=== PATIENT | male | born 1955 | race Caucasian/White ===

== ENCOUNTER → 2020-06-21 | Outpatient (CLI) | payer MEDICARE | LOC: HEART 5 07:23 | DX: I25.10 Atherosclerotic heart disease of native coronary artery without angina pectoris (principal); R94.31 Abnormal electrocardiogram [ECG] [EKG]; R07.9 Chest pain, unspecified; M51.16 Intervertebral disc disorders with radiculopathy, lumbar region | CPT/HCPCS: 78452; A9502; J2785 ==

== ENCOUNTER → 2021-03-29 | Outpatient (CLI) | payer MEDICARE | LOC: KOH-I 03-22 15:00 | DX: G45.9 Transient cerebral ischemic attack, unspecified (principal); R42 Dizziness and giddiness | CPT/HCPCS: 70544; 70551; 93880 ==

== ENCOUNTER → 2022-02-19 | Day surgery (SDC) | payer MEDICARE ==
[~2022-02-19] MED LIST: AMLODIPINE-BEN1 EAC5 PO; ESOMEPRAZOLE MA40 MG PO; HYDROCHLOROTHIA25 MG PO; HYDROCODONE-AC1 EAC1 PO; LIPITOR TAB 1010 MG PO; METOPROLOL SUCC25 MG PO
== END | disposition home or self-care (01) ==
LOC: OR 06:12
DX: Z12.11 Encounter for screening for malignant neoplasm of colon (principal); N40.0 Benign prostatic hyperplasia without lower urinary tract symptoms; I10 Essential (primary) hypertension; E78.5 Hyperlipidemia, unspecified; Z87.891 Personal history of nicotine dependence
CPT/HCPCS: J2001; J2704